=== PATIENT | male | born 1960 | race Caucasian/White ===

== ENCOUNTER 2016-06-10 14:47 | Emergency (ER) | payer MEDICAID, MEDICARE ==
[~2016-06-10] VITALS: Ht 180.3 cm; Wt 88.0 kg
[~2016-06-10 14:47] MED LIST: CIPR500T89 PO; GLIM2TAB PO; LORT1TAB PO
[2016-06-10 16:22] LABS: BASO # 0.1 K/mm3 (0.0-0.2); BASO % 0.8 % (0.0-1.0); EOS # 0.3 K/mm3 (0.0-0.50); EOS % 2.4 % (0.0-3.0); LARGE UNSTAINED CELL # 0.1 K/mm3 (0.0-0.4); LARGE UNSTAINED CELL % 1.2 % (0.0-4.0); LYMPH % 15.5 % (24.0-44.0); MEAN CORPUSCULAR HEMOGLOBIN 29.8 pg (27.0-33.0); MEAN CORPUSCULAR HGB CONC 34.9 g/dl (32.0-36.5); MEAN CORPUSCULAR VOLUME 85.5 fl (80.0-96.0); MONO # 0.6 K/mm3 (0.0-0.8); MONO % 5.1 % (0.0-5.0); NEUTROPHILS # 8.9 K/mm3 (1.8-7.7); PLATELET COUNT, AUTOMATED 223 k/mm3 (150-450); RED CELL DISTRIBUTION WIDTH 12.8 % (11.5-14.5); WHITE BLOOD COUNT 11.9 K/mm3 (4.0-10.0)
[2016-06-10 16:41] LABS: ANION GAP 8 MEQ/L (8-16); BLOOD UREA NITROGEN 12 MG/DL (7-18); CALCIUM LEVEL 8.7 MG/DL (8.5-10.1); CARBON DIOXIDE LEVEL 30 MEQ/L (21-32); CHLORIDE LEVEL 100 MEQ/L (98-107); CREATININE FOR GFR 0.98 MG/DL (0.70-1.30); GLOMERULAR FILTRATION RATE > 60.0 (>56); GLUCOSE, FASTING 219 MG/DL (70-105); POTASSIUM SERUM 3.8 MEQ/L (3.5-5.1); SODIUM LEVEL 138 MEQ/L (136-145)
[2016-06-10] MEDS ORDERED: amLODIPine 5 MG TAB PO ONE (16:45)
[2016-06-10] MEDS ORDERED: LOSARTAN 50 MG TAB PO ONE (16:45)
--- NOTE | 2016-06-10 16:53 | REP ---
CT HEAD WITHOUT CONTRAST: HISTORY: Hypertensive emergency. Areas of decreased attentuation are present in the periventricular white matter. This represents small vessel ischemic disease. There is no intraparenchymal hemorrhage, mass or midline shift. The ventricular system and cortical sulci are dilated consistent with mild volume loss. There is no extracerebral collection. The visualized sinuses are clear. IMPRESSION: 1. Small vessel ischemic disease. 2. Mild volume loss. Signed by Robby Santiago MD 06/10/2016 04:57 P
[2016-06-10] MEDS ORDERED: amLODIPine 10 MG TAB PO ONE (17:00)
--- NOTE | 2016-06-10 17:00 | REP ---
Chest x-ray: Two views: History: Chest pain. Comparison study: 04/02/2015. Findings: EKG monitoring electrodes overlie the chest. The lungs are symmetrically aerated and clear. Pleural angles are sharp. Heart size is normal. The aorta is slightly tortuous. Pulmonary vasculature is not increased. Impression: No active disease. Signed by Marcellus Braxton MD 06/10/2016 06:27 P
[2016-06-10] MEDS ORDERED: AMLO10TA PO (18:31)
[2016-06-10] MEDS ORDERED: LOSA100T36 PO (18:31)
[2016-06-10 18:45] VITALS: BP 163/85
[2016-06-10] MEDS ORDERED: hydrALAZINE INJ 20 MG/ML VIAL IV ONE (18:45)
[2016-06-10 21:04] VITALS: BP 159/88
--- NOTE | 2016-06-11 05:00 | ECGEPIP ---
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
== END 2016-06-10 21:06 | disposition home or self-care (01) ==
LOC: M ED 16:53
DX: I10 Essential (primary) hypertension (principal); E11.9 Type 2 diabetes mellitus without complications; J44.9 Chronic obstructive pulmonary disease, unspecified; F31.9 Bipolar disorder, unspecified; G47.30 Sleep apnea, unspecified; Z91.120 Patient's intentional underdosing of medication regimen due to financial hardship; F17.210 Nicotine dependence, cigarettes, uncomplicated; Z79.2 Long term (current) use of antibiotics; Z79.899 Other long term (current) drug therapy; Z86.14 Personal history of Methicillin resistant Staphylococcus aureus infection
CPT/HCPCS: 36415; 70450; 71020; 80048; 82550; 82553; 84443; 84484; 85025; 93005; 93041; 94760; 99285; G0463

== ENCOUNTER → 2016-07-01 | Outpatient (CLI) | payer MEDICARE ==
[~2016-07-01] MED LIST changes: +AMLO10TA PO; +ISOVUE-370 76% 100ML VIAL (Q9967) As Ordered ONE; +LOSA100T36 PO
--- NOTE | 2016-07-02 05:43 | REP ---
CT ANGIOGRAM ABDOMEN AND PELVIS: TECHNIQUE: Axial noncontrast images through the abdomen followed by contrast-enhanced images through the abdomen and pelvis using 100 mL Isovue 370 intravenous contrast material, with coronal and sagittal reformations. MIP reconstructions are also performed. The abdominal aorta demonstrates moderate atherosclerotic plaquing and mild diffuse narrowing. There is no aneurysm. There is mild narrowing at the origin of the mesenteric arteries. Focal narrowing is seen in the proximal right renal artery between 40-50%. Similar degree of narrowing of 40-50% is seen in the proximal left renal artery. 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 There is mild diffuse narrowing of the common iliac, external iliac and common femoral arteries. No adenopathy is seen in the abdomen or pelvis with normal size periaortic lymph nodes. There is no free air or free fluid. The liver, spleen, adrenals, pancreas and kidneys are otherwise unremarkable. Urinary bladder demonstrated small diverticula bilaterally at the base of the bladder. There is a small left inguinal hernia containing fat. Patient has had a prior cholecystectomy. There are degenerative changes of the spine. 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 Signed by Graham Dillard MD 07/02/2016 04:04 P
== END ==
LOC: M RAD 07:40
PROVIDERS: ATTEND Internal Medicine Cardiovascular Disease
DX: I70.1 Atherosclerosis of renal artery (principal); I10 Essential (primary) hypertension
CPT/HCPCS: 74174; Q9967

== ENCOUNTER 2016-09-25 07:36 | Emergency (ER) | payer MEDICARE ==
[~2016-09-25] VITALS: Ht 180.3 cm; Wt 93.0 kg
[~2016-09-25 07:36] MED LIST changes: +CIPR-249 PO; -CIPR500T89 PO; -ISOVUE-370 76% 100ML VIAL (Q9967) As Ordered ONE
[2016-09-25] MEDS ORDERED: METF500T13 PO (07:51)
[2016-09-25] MEDS ORDERED: ATEN25TA (07:51)
[2016-09-25] MEDS ORDERED: ROSU20TA (07:51)
[2016-09-25] MEDS ORDERED: ASPI81TA85 PO (07:51)
[2016-09-25 09:10] VITALS: BP 121/74
== END 2016-09-25 09:13 | disposition home or self-care (01) ==
LOC: M ED 07:36
DX: F25.9 Schizoaffective disorder, unspecified (principal); F41.9 Anxiety disorder, unspecified; E11.9 Type 2 diabetes mellitus without complications; I10 Essential (primary) hypertension; Z79.82 Long term (current) use of aspirin; Z79.899 Other long term (current) drug therapy

== ENCOUNTER 2017-06-05 04:55 | Emergency (ER) | payer MEDICARE ==
[2017-06-05] MEDS: ADACEL/BOOSTRIX VACCINE (DIPHTH/PERTUSS/ACELL/TETANUS)0.5ML SYR (90715) IM (07:10)
[2017-06-05] MEDS: NORCO, ANEXSIA 5/325MG TABLET (HYDROcodone/ACETAMINOPHEN) PO (07:11)
[2017-06-05] MEDS: amLODIPine 5 MG TAB PO (07:11)
[2017-06-05] MEDS: LOSARTAN 50 MG TAB PO (07:11)
[2017-06-05] MEDS: ATENOLOL 25 MG TAB PO (07:11)
== END 2017-06-05 07:20 | disposition home or self-care (01) ==
LOC: M ED 04:55
DX: S00.93XA Contusion of unspecified part of head, initial encounter (principal); S02.2XXA Fracture of nasal bones, initial encounter for closed fracture; S06.0X0A Concussion without loss of consciousness, initial encounter; W17.89XA Other fall from one level to another, initial encounter; Y92.018 Other place in single-family (private) house as the place of occurrence of the external cause; E11.9 Type 2 diabetes mellitus without complications; I10 Essential (primary) hypertension; F31.9 Bipolar disorder, unspecified; G47.33 Obstructive sleep apnea (adult) (pediatric); R21 Rash and other nonspecific skin eruption; F17.210 Nicotine dependence, cigarettes, uncomplicated; Z79.899 Other long term (current) drug therapy; Z79.84 Long term (current) use of oral hypoglycemic drugs; Z79.82 Long term (current) use of aspirin; Z82.49 Family history of ischemic heart disease and other diseases of the circulatory system
CPT/HCPCS: 90715

== ENCOUNTER 2017-06-08 09:32 | Emergency (ER) | payer MEDICARE | END 2017-06-08 10:19 | disposition home or self-care (01) | LOC: M ED 09:32 | DX: S43.402A Unspecified sprain of left shoulder joint, initial encounter (principal); W19.XXXA Unspecified fall, initial encounter; Y92.009 Unspecified place in unspecified non-institutional (private) residence as the place of occurrence of the external cause; F20.9 Schizophrenia, unspecified; Z82.49 Family history of ischemic heart disease and other diseases of the circulatory system; Z79.2 Long term (current) use of antibiotics; Z79.899 Other long term (current) drug therapy; Z79.84 Long term (current) use of oral hypoglycemic drugs | CPT/HCPCS: 73030 ==

== ENCOUNTER 2017-06-08 18:25 | Observation (INO) | payer MEDICARE ==
[2017-06-08 19:06] LABS: BASO # 0.1 10^3/uL (0.0-0.2); BASO % 0.5 % (0.0-1.0); EOS # 0.2 10^3/uL (0.0-0.50); EOS % 1.6 % (0.0-3.0); HEMATOCRIT 44.4 % (42.0-52.0); HEMOGLOBIN 15.4 g/dl (13.5-17.5); IMMATURE GRANULOCYTE % 0.5 % (0-3.0); LYMPH # 1.5 10^3/uL (1.5-4.5); LYMPH % 14.4 % (24.0-44.0); MEAN CORPUSCULAR HEMOGLOBIN 29.3 pg (27.0-33.0); MEAN CORPUSCULAR HGB CONC 34.7 g/dl (32.0-36.5); MEAN CORPUSCULAR VOLUME 84.6 fl (80.0-96.0); MONO # 0.8 10^3/uL (0.0-0.8); MONO % 7.1 % (0.0-5.0); NEUTROPHILS # 8.2 10^3/uL (1.8-7.7); NEUTROPHILS % 75.9 % (36.0-66.0); PLATELET COUNT, AUTOMATED 242 10^3/uL (150-450); RED BLOOD COUNT 5.25 10^6/uL (4.30-6.10); RED CELL DISTRIBUTION WIDTH 13.3 % (11.5-14.5); WHITE BLOOD COUNT 10.7 10^3/uL (4.0-10.0)
[2017-06-08 19:26] LABS: OSMOLALITY SERUM 290 MOSM/KG (275-295)
[2017-06-08 19:28] LABS: AMMONIA 28 uMOL/L (<32)
[2017-06-08 19:31] LABS: LACTIC ACID SEPSIS PROTOCOL 1.5 MMOL/L (0.4-2.0)
[2017-06-08 19:33] LABS: ALBUMIN 3.8 GM/DL (3.2-5.2); ALKALINE PHOSPHATASE 134 U/L (45-117); ALT/SGPT 89 U/L (12-78); ANION GAP 5 MEQ/L (8-16); AST/SGOT 106 U/L (7-37); BILIRUBIN,DIRECT 0.3 MG/DL (0.0-0.2); BILIRUBIN,TOTAL 1.3 MG/DL (0.2-1.0); BLOOD UREA NITROGEN 15 MG/DL (7-18); CALCIUM LEVEL 8.6 MG/DL (8.5-10.1); CARBON DIOXIDE LEVEL 28 MEQ/L (21-32); CHLORIDE LEVEL 105 MEQ/L (98-107); CK-MB VALUE MASS 2.6 NG/ML (<3.6); CPK CREATINE PHOSPHOKINASE 124 U/L (39-308); CREATININE FOR GFR 0.85 MG/DL (0.70-1.30); ETHYL ALCOHOL (ETHANOL) 0.005 % (0.000-0.010); GLOMERULAR FILTRATION RATE > 60.0 (>56); GLUCOSE, FASTING 154 MG/DL (70-100); MB/CK RELATIVE INDEX 2.09 (< OR =4); POTASSIUM SERUM 3.5 MEQ/L (3.5-5.1); SODIUM LEVEL 138 MEQ/L (136-145); TOTAL PROTEIN 7.6 GM/DL (6.4-8.2); TROPONIN I < 0.02 NG/ML (< 0.10)
[2017-06-08 19:55] LABS: INR 1.06; PROTHROMBIN TIME 13.9 SECONDS (12.4-14.5)
[2017-06-08 19:56] LABS: PARTIAL THROMBOPLASTIN TIME 27.5 SECONDS (26.8-37.9)
[2017-06-08 21:04] LABS: KETONE, URINE AUTO RFX NEGATIVE (NEGATIVE); LEUKOCYTE ESTERASE UR AUTO RFX NEGATIVE (NEGATIVE); MUCUS, URINE RFX SMALL (NEGATIVE); NITRITE, URINE AUTO RFX NEGATIVE (NEGATIVE); RBC, URINE AUTO RFX 1 /HPF (0-3); SPECIFIC GRAVITY UR AUTO RFX 1.021 (1.002-1.035); SQUAM EPITHELIAL CELL UR AURFX 0 /HPF (0-6); WBC, URINE AUTO RFX 2 /HPF (0-3)
[2017-06-08 21:19] LABS: AMPHETAMINES LEVEL URINE NEGATIVE (NEGATIVE); BARBITURATES URINE NEGATIVE (NEGATIVE); BENZODIAZEPINES URINE NEGATIVE (NEGATIVE); CANNABINOIDS URINE NEGATIVE (NEGATIVE); COCAINE METABOLITE URINE NEGATIVE (NEGATIVE); METHADONE URINE NEGATIVE (NEGATIVE); OPIATES URINE POSITIVE (NEGATIVE); PHENCYCLIDINE URINE NEGATIVE (NEGATIVE)
[2017-06-08 21:45] LABS: ABG BASE EXCESS 1.5 (-2.0-2.0); ABG HCO3 26.3 MEQ/L (22.0-26.0); ABG O2 SATURATION 95.8 % (95.0-99.0); ABG PARTIAL PRESSURE CO2 42.4 mmHg (35.0-45.0); ABG STANDARD HCO3 25.7 MEQ/L (22.0-26.0); ABG TOTAL CO2 27.6 MEQ/L (22.0-29.0); ABG pH (ARTERIAL) 7.411 UNITS (7.350-7.450)
[2017-06-08 22:28] LABS: OSMOLALITY SERUM 290 MOSM/KG (275-295)
[2017-06-08 22:49] LABS: ACETAMINOPHEN LEVEL < 2.0 UG/ML (10.0-30.0)
[2017-06-08 23:59] LABS: ALBUMIN 3.6 GM/DL (3.2-5.2); ALBUMIN/GLOBULIN RATIO 1.03 (1.00-1.93); ALKALINE PHOSPHATASE 121 U/L (45-117); ALT/SGPT 80 U/L (12-78); AST/SGOT 71 U/L (7-37); BILIRUBIN,DIRECT 0.2 MG/DL (0.0-0.2); BILIRUBIN,TOTAL 1.6 MG/DL (0.2-1.0); TOTAL PROTEIN 7.1 GM/DL (6.4-8.2)
[2017-06-09] MEDS ORDERED: NALOXONE INJ 0.4 MG/1 ML VIAL (J2310) As Ordered (00:03)
[2017-06-09] MEDS: NALOXONE INJ 0.4 MG/1 ML VIAL (J2310) IV (00:09)
[2017-06-09] MEDS: NALOXONE INJ 2 MG/2 ML SYRINGE (J2310) IV (00:36)
[2017-06-09] MEDS ORDERED: ONDANSETRON 4MG/2ML VIAL (J2405) IV (01:45)
[2017-06-09] MEDS ORDERED: GLUCOSE 4 GM CHEW TABLET PO (02:15)
[2017-06-09] MEDS ORDERED: DEXTROSE 50% 50 ML SYRINGE IV (02:15)
[2017-06-09] MEDS ORDERED: GLUCAGON FOR INJ 1 MG VIAL (J1610) SC (02:15)
[2017-06-09 05:17] LABS: HEMATOCRIT 45.1 % (42.0-52.0); HEMOGLOBIN 15.5 g/dl (13.5-17.5); MEAN CORPUSCULAR HEMOGLOBIN 29.3 pg (27.0-33.0); MEAN CORPUSCULAR HGB CONC 34.4 g/dl (32.0-36.5); MEAN CORPUSCULAR VOLUME 85.3 fl (80.0-96.0); PLATELET COUNT, AUTOMATED 222 10^3/uL (150-450); RED BLOOD COUNT 5.29 10^6/uL (4.30-6.10); RED CELL DISTRIBUTION WIDTH 13.4 % (11.5-14.5); WHITE BLOOD COUNT 9.6 10^3/uL (4.0-10.0)
[2017-06-09 05:37] LABS: ALBUMIN 3.5 GM/DL (3.2-5.2); ALBUMIN/GLOBULIN RATIO 0.92 (1.00-1.93); ALKALINE PHOSPHATASE 116 U/L (45-117); ALT/SGPT 74 U/L (12-78); ANION GAP 7 MEQ/L (8-16); AST/SGOT 44 U/L (7-37); BILIRUBIN,TOTAL 1.6 MG/DL (0.2-1.0); BLOOD UREA NITROGEN 14 MG/DL (7-18); CALCIUM LEVEL 8.7 MG/DL (8.5-10.1); CARBON DIOXIDE LEVEL 27 MEQ/L (21-32); CHLORIDE LEVEL 106 MEQ/L (98-107); CREATININE FOR GFR 0.72 MG/DL (0.70-1.30); GLOMERULAR FILTRATION RATE > 60.0 (>56); GLUCOSE, FASTING 139 MG/DL (70-100); POTASSIUM SERUM 3.5 MEQ/L (3.5-5.1); SODIUM LEVEL 140 MEQ/L (136-145); TOTAL PROTEIN 7.3 GM/DL (6.4-8.2)
[2017-06-09] MEDS: AUGMENTIN 875 MG TAB PO ×2 (06:01→17:18)
[2017-06-09] MEDS: HEPARIN SOD (PORCINE) 5000 UNITS/ML VIAL SC ×3 (06:01→21:32)
[2017-06-09] MEDS: ASPIRIN 81 MG ENTERIC TAB PO (08:26)
[2017-06-09] MEDS: HumaLOG INSULIN (NovoLOG) PER UNIT SC ×4 (08:26→21:00)
[2017-06-09] MEDS: DOCUSATE SODIUM 100 MG CAP PO ×2 (08:26→21:32)
[2017-06-09] MEDS: IBUPROFEN 400 MG TAB PO (08:53)
[2017-06-09 12:23] LABS: BEDSIDE GLUCOSE 107 MG/DL (70-105)
[2017-06-09 17:21] LABS: BEDSIDE GLUCOSE 133 MG/DL (70-105)
[2017-06-09] MEDS: amLODIPine 10 MG TAB PO (18:22)
[2017-06-09] MEDS: ATENOLOL 25 MG TAB PO (18:22)
[2017-06-09 21:15] LABS: BEDSIDE GLUCOSE 189 MG/DL (70-105)
[2017-06-09] MEDS: LOSARTAN 50 MG TAB PO (21:31)
[2017-06-10 05:48] LABS: HEMATOCRIT 43.7 % (42.0-52.0); MEAN CORPUSCULAR HEMOGLOBIN 29.4 pg (27.0-33.0); MEAN CORPUSCULAR HGB CONC 34.3 g/dl (32.0-36.5); MEAN CORPUSCULAR VOLUME 85.7 fl (80.0-96.0); PLATELET COUNT, AUTOMATED 269 10^3/uL (150-450); RED CELL DISTRIBUTION WIDTH 13.3 % (11.5-14.5); WHITE BLOOD COUNT 11.3 10^3/uL (4.0-10.0)
[2017-06-10] MEDS: AUGMENTIN 875 MG TAB PO ×2 (05:55→17:23)
[2017-06-10] MEDS: HEPARIN SOD (PORCINE) 5000 UNITS/ML VIAL SC ×3 (05:56→22:02)
[2017-06-10 06:18] LABS: ALT/SGPT 49 U/L (12-78); ANION GAP 3 MEQ/L (8-16); AST/SGOT 18 U/L (7-37); BLOOD UREA NITROGEN 19 MG/DL (7-18); CALCIUM LEVEL 8.9 MG/DL (8.5-10.1); CARBON DIOXIDE LEVEL 31 MEQ/L (21-32); CHLORIDE LEVEL 105 MEQ/L (98-107); CREATININE FOR GFR 0.94 MG/DL (0.70-1.30); GLOMERULAR FILTRATION RATE > 60.0 (>56); GLUCOSE, FASTING 126 MG/DL (70-100); POTASSIUM SERUM 3.9 MEQ/L (3.5-5.1); SODIUM LEVEL 139 MEQ/L (136-145)
[2017-06-10 06:19] LABS: ALBUMIN 3.2 GM/DL (3.2-5.2); ALBUMIN/GLOBULIN RATIO 0.82 (1.00-1.93); ALKALINE PHOSPHATASE 91 U/L (45-117); BILIRUBIN,TOTAL 1.2 MG/DL (0.2-1.0); TOTAL PROTEIN 7.1 GM/DL (6.4-8.2)
[2017-06-10] MEDS: HumaLOG INSULIN (NovoLOG) PER UNIT SC ×4 (07:55→21:00)
[2017-06-10] MEDS: ATENOLOL 25 MG TAB PO (09:18)
[2017-06-10] MEDS: ASPIRIN 81 MG ENTERIC TAB PO (09:18)
[2017-06-10] MEDS: DOCUSATE SODIUM 100 MG CAP PO ×2 (09:18→22:02)
[2017-06-10] MEDS: amLODIPine 10 MG TAB PO (09:19)
[2017-06-10] MEDS: LOSARTAN 50 MG TAB PO ×2 (09:19→22:02)
[2017-06-10] MEDS ORDERED: SLF 3 ML SYR IV (11:30)
[2017-06-10 11:57] LABS: BEDSIDE GLUCOSE 117 MG/DL (70-105)
[2017-06-10] MEDS: INFLUENZA QUADRIVALENT PF VACCINE 0.5ML SYRINGE (90686) IM (12:33)
[2017-06-10] MEDS: SLF 3 ML SYR IV ×2 (14:20→22:03)
[2017-06-10 17:25] LABS: BEDSIDE GLUCOSE 127 MG/DL (70-105)
[2017-06-10] MEDS: IBUPROFEN 400 MG TAB PO (17:36)
[2017-06-10 21:13] LABS: BEDSIDE GLUCOSE 152 MG/DL (70-105)
[2017-06-11] MEDS: AUGMENTIN 875 MG TAB PO (05:22)
[2017-06-11] MEDS: SLF 3 ML SYR IV (05:23)
[2017-06-11] MEDS: HEPARIN SOD (PORCINE) 5000 UNITS/ML VIAL SC (05:23)
[2017-06-11 06:11] LABS: HEMATOCRIT 42.4 % (42.0-52.0); HEMOGLOBIN 14.5 g/dl (13.5-17.5); MEAN CORPUSCULAR HEMOGLOBIN 29.1 pg (27.0-33.0); MEAN CORPUSCULAR HGB CONC 34.2 g/dl (32.0-36.5); PLATELET COUNT, AUTOMATED 269 10^3/uL (150-450); RED BLOOD COUNT 4.99 10^6/uL (4.30-6.10); RED CELL DISTRIBUTION WIDTH 13.2 % (11.5-14.5); WHITE BLOOD COUNT 10.7 10^3/uL (4.0-10.0)
[2017-06-11 06:23] LABS: ALBUMIN 3.1 GM/DL (3.2-5.2); ALBUMIN/GLOBULIN RATIO 0.79 (1.00-1.93); ALKALINE PHOSPHATASE 82 U/L (45-117); ALT/SGPT 38 U/L (12-78); ANION GAP 5 MEQ/L (8-16); AST/SGOT 16 U/L (7-37); BILIRUBIN,TOTAL 0.9 MG/DL (0.2-1.0); BLOOD UREA NITROGEN 19 MG/DL (7-18); CALCIUM LEVEL 8.7 MG/DL (8.5-10.1); CARBON DIOXIDE LEVEL 28 MEQ/L (21-32); CHLORIDE LEVEL 106 MEQ/L (98-107); CREATININE FOR GFR 0.91 MG/DL (0.70-1.30); GLOMERULAR FILTRATION RATE > 60.0 (>56); GLUCOSE, FASTING 126 MG/DL (70-100); POTASSIUM SERUM 3.9 MEQ/L (3.5-5.1); SODIUM LEVEL 139 MEQ/L (136-145)
[2017-06-11] MEDS: HumaLOG INSULIN (NovoLOG) PER UNIT SC ×2 (08:19→11:49)
[2017-06-11] MEDS: IBUPROFEN 400 MG TAB PO (08:20)
[2017-06-11] MEDS: DOCUSATE SODIUM 100 MG CAP PO (08:20)
[2017-06-11] MEDS: ASPIRIN 81 MG ENTERIC TAB PO (08:21)
[2017-06-11] MEDS: ATENOLOL 25 MG TAB PO (08:21)
[2017-06-11] MEDS: amLODIPine 10 MG TAB PO (08:21)
[2017-06-11] MEDS: LOSARTAN 50 MG TAB PO (08:22)
[2017-06-11 09:46] LABS: BEDSIDE GLUCOSE 156 MG/DL (70-105)
[2017-06-11 11:55] LABS: BEDSIDE GLUCOSE 94 MG/DL (70-105)
== END 2017-06-11 12:45 | disposition home or self-care (01) ==
LOC: M ED INP 06-09 01:45 → M PCU 06-09 02:34 → M ED 18:25
DX: R41.82 Altered mental status, unspecified (principal); Z79.891 Long term (current) use of opiate analgesic; I10 Essential (primary) hypertension; M48.02 Spinal stenosis, cervical region; M50.30 Other cervical disc degeneration, unspecified cervical region; E11.40 Type 2 diabetes mellitus with diabetic neuropathy, unspecified; F31.9 Bipolar disorder, unspecified; R93.0 Abnormal findings on diagnostic imaging of skull and head, not elsewhere classified; R74.0 Nonspecific elevation of levels of transaminase and lactic acid dehydrogenase [LDH]; J32.9 Chronic sinusitis, unspecified; R26.89 Other abnormalities of gait and mobility; F17.200 Nicotine dependence, unspecified, uncomplicated; Z79.82 Long term (current) use of aspirin; Z23 Encounter for immunization; S43.402A Unspecified sprain of left shoulder joint, initial encounter; W19.XXXA Unspecified fall, initial encounter; Y92.009 Unspecified place in unspecified non-institutional (private) residence as the place of occurrence of the external cause; F20.9 Schizophrenia, unspecified; Z82.49 Family history of ischemic heart disease and other diseases of the circulatory system; Z79.2 Long term (current) use of antibiotics; Z79.899 Other long term (current) drug therapy; Z79.84 Long term (current) use of oral hypoglycemic drugs
CPT/HCPCS: 90686

== ENCOUNTER → 2017-06-16 | Outpatient (REF) | payer MEDICARE ==
[2017-06-16 12:23] LABS: ANION GAP 6 MEQ/L (8-16); BLOOD UREA NITROGEN 13 MG/DL (7-18); CALCIUM LEVEL 8.8 MG/DL (8.5-10.1); CARBON DIOXIDE LEVEL 28 MEQ/L (21-32); CHLORIDE LEVEL 108 MEQ/L (98-107); CREATININE FOR GFR 0.94 MG/DL (0.70-1.30); GLOMERULAR FILTRATION RATE > 60.0 (>56); GLUCOSE, FASTING 135 MG/DL (70-100); POTASSIUM SERUM 4.6 MEQ/L (3.5-5.1); SODIUM LEVEL 142 MEQ/L (136-145)
[2017-06-16 15:25] LABS: ESTIMATED AVERAGE GLUCOSE 143 MG/DL (60-110); HEMOGLOBIN A1c 6.6 %
== END ==
LOC: M SFHCPLAZ 08:56
DX: E11.9 Type 2 diabetes mellitus without complications (principal)
CPT/HCPCS: 83036

== ENCOUNTER → 2017-07-16 | Outpatient (REF) | payer MEDICARE ==
[2017-07-16 16:17] LABS: PSA SCREENING 0.31 NG/ML (< 4.0)
== END ==
LOC: M SFHCPLAZ 11:42
DX: R63.4 Abnormal weight loss (principal); Z12.5 Encounter for screening for malignant neoplasm of prostate; Z23 Encounter for immunization
CPT/HCPCS: G0103

== ENCOUNTER → 2017-08-22 | Outpatient (CLI) | payer MEDICARE | LOC: M RAD 08:43 | DX: Z12.2 Encounter for screening for malignant neoplasm of respiratory organs (principal); Z87.891 Personal history of nicotine dependence | CPT/HCPCS: G0297 ==

== ENCOUNTER → 2018-01-13 | Outpatient (REF) | payer MEDICARE ==
[2018-01-13 16:02] LABS: ESTIMATED AVERAGE GLUCOSE 120 MG/DL (60-110); HEMOGLOBIN A1c 5.8 %
== END ==
LOC: M SFHCPLAZ 14:14
DX: E11.9 Type 2 diabetes mellitus without complications (principal)
CPT/HCPCS: 83036

== ENCOUNTER 2018-04-04 07:31 | Inpatient (IN) | payer MEDICARE ==
[~2018-04-04] VITALS: Ht 180.3 cm; Wt 78.2 kg
[~2018-04-04 07:31] MED LIST changes: +AMLO10TA5 PO; +ASPI81TA85 PO; +ATEN25TA; +ATEN25TA PO; +AUGM875T28 PO; +IBUP-1022 PO; -LOSA100T36 PO; +LOSA100T50 PO; +METF500T13 PO; +NORC1TAB4 PO; +NORCOTAB PO; +ROSU20TA4; +VIST25CA PO
[2018-04-04 08:31] LABS: HEMATOCRIT 47.6 % (42.0-52.0); HEMOGLOBIN 16.2 g/dl (13.5-17.5); MEAN CORPUSCULAR HEMOGLOBIN 29.2 pg (27.0-33.0); MEAN CORPUSCULAR VOLUME 85.8 fl (80.0-96.0); PLATELET COUNT, AUTOMATED 233 10^3/uL (150-450); RED BLOOD COUNT 5.55 10^6/uL (4.30-6.10); WHITE BLOOD COUNT 13.3 10^3/uL (4.0-10.0)
[2018-04-04 08:50] LABS: AMPHETAMINES LEVEL URINE NEGATIVE (NEGATIVE); BARBITURATES URINE NEGATIVE (NEGATIVE); BENZODIAZEPINES URINE NEGATIVE (NEGATIVE); CANNABINOIDS URINE NEGATIVE (NEGATIVE); COCAINE METABOLITE URINE NEGATIVE (NEGATIVE); METHADONE URINE NEGATIVE (NEGATIVE); OPIATES URINE NEGATIVE (NEGATIVE); PHENCYCLIDINE URINE NEGATIVE (NEGATIVE)
[2018-04-04 09:18] LABS: ACETAMINOPHEN LEVEL < 2.0 UG/ML (10.0-30.0); ALBUMIN 3.9 GM/DL (3.2-5.2); ALT/SGPT 22 U/L (12-78); BILIRUBIN,DIRECT 0.3 MG/DL (0.0-0.2); BILIRUBIN,TOTAL 1.4 MG/DL (0.2-1.0); BLOOD UREA NITROGEN 17 MG/DL (7-18); CALCIUM LEVEL 8.8 MG/DL (8.5-10.1); CARBON DIOXIDE LEVEL 26 MEQ/L (21-32); CHLORIDE LEVEL 109 MEQ/L (98-107); CREATININE FOR GFR 0.99 MG/DL (0.70-1.30); ETHYL ALCOHOL (ETHANOL) < 0.003 % (0.000-0.010); GLOMERULAR FILTRATION RATE > 60.0 (>56); GLUCOSE, FASTING 108 MG/DL (70-100); POTASSIUM SERUM 4.5 MEQ/L (3.5-5.1); SALICYLATE LEVEL < 1.7 MG/DL (5.0-30.0); SODIUM LEVEL 142 MEQ/L (136-145); THYROID STIMULATING HORMONE 0.467 uIU/ML (0.358-3.740); TOTAL PROTEIN 7.1 GM/DL (6.4-8.2)
[2018-04-04] MEDS ORDERED: MOM 30ML SUSPENSION UDC PO PRN (11:45)
[2018-04-04] MEDS ORDERED: ACETAMINOPHEN TAB 650MG DOSE (2X325MG) PO PRN (11:45)
[2018-04-04] MEDS ORDERED: MAALOX 30 ML SUSP *UDC PO PRN (11:45)
[2018-04-04] MEDS ORDERED: OLANZapine ORAL DISINTEGRATING TAB 5MG PO PRN (11:45)
[2018-04-04] MEDS ORDERED: METF500T13 PO (12:37)
[2018-04-04] MEDS ORDERED: ASPI1TAB PO (12:37)
[2018-04-04] MEDS ORDERED: LOSA100T50 PO (12:37)
[2018-04-04] MEDS ORDERED: NITR0.4S14 SL (12:37)
[2018-04-04] MEDS ORDERED: ATEN50TA2 PO (12:37)
[2018-04-04] MEDS ORDERED: GLIM2TAB PO (12:37)
[2018-04-04 14:03] VITALS: BP 140/78
[2018-04-04 18:00] VITALS: BP 150/80
[2018-04-05 06:00] VITALS: BP 114/69
[2018-04-05] MEDS: PARoxetine 10MG TABLET PO SCH (08:00)
[2018-04-05] MEDS: NICOTINE 21MG/24HR 1 EA TRANSDERMAL TD SCH (08:00)
[2018-04-05 18:00] VITALS: BP 140/75
[2018-04-05] MEDS ORDERED: IBUPROFEN 400 MG TAB PO PRN (18:00)
[2018-04-05] MEDS: traZODone 50 MG TAB PO PRN (20:57)
[2018-04-05] MEDS ORDERED: diphenhydrAMINE 50 MG CAP PO PRN (21:15)
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
[2018-04-06 06:52] VITALS: BP 153/77
[2018-04-06] MEDS: metFORMIN (GLUCOPHAGE) 500 MG TAB PO SCH ×2 (07:34→17:08)
[2018-04-06] MEDS: GLIMEPIRIDE 2 MG TAB PO SCH (07:34)
[2018-04-06] MEDS: PARoxetine 10MG TABLET PO SCH (08:33)
[2018-04-06] MEDS: LOSARTAN 50 MG TAB PO SCH (08:33)
[2018-04-06] MEDS: ATENOLOL 50 MG TAB PO SCH ×2 (08:34→21:51)
[2018-04-06] MEDS: NICOTINE 21MG/24HR 1 EA TRANSDERMAL TD SCH (08:34)
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
--- NOTE | 2018-04-06 17:46 | MHIPN ---
DATE: 04/05/2018 CHIEF COMPLAINT: Feels depressed. SUBJECTIVE: Seen for followup in the presence of staff. Says feels depressed and did not sleep well, says not aware that had trazodone available. Says appetite has been fair. MENTAL STATUS EXAMINATION: He is neater than yesterday, he is cooperative, more interactive, he is coherent. Affect is broader. Denies any thoughts of harming anyone else at present, vague suicidal thoughts, currently no evidence of psychosis. Cognition grossly intact. Judgment and insight remain questionable. ASSESSMENT: Major depressive disorder recurrent. PLAN: He has been started on Paxil, will continue with it at 10 mg daily and titrate it upwards. He has tolerated it well. He has one dose. We will continue collateral information. He will be encouraged to participate in activities on the unit, and he will be seeing the treatment team, as well as the assigned psychiatrist tomorrow. VITAL SIGNS: Blood pressure (BP) 104/69, pulse 63 and temperature 97.4.
[2018-04-06 18:00] VITALS: BP 97/54
[2018-04-06] MEDS: traZODone 50 MG TAB PO PRN (22:02)
[2018-04-07 06:41] VITALS: BP 125/66
[2018-04-07] MEDS: PARoxetine 10MG TABLET PO SCH (08:35)
[2018-04-07] MEDS: LOSARTAN 50 MG TAB PO SCH (08:36)
[2018-04-07] MEDS: GLIMEPIRIDE 2 MG TAB PO SCH (08:36)
[2018-04-07] MEDS: metFORMIN (GLUCOPHAGE) 500 MG TAB PO SCH ×2 (08:36→17:44)
[2018-04-07] MEDS: ATENOLOL 50 MG TAB PO SCH ×2 (08:36→22:06)
[2018-04-07] MEDS: NICOTINE 21MG/24HR 1 EA TRANSDERMAL TD SCH (08:37)
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
--- NOTE | 2018-04-07 11:34 | HPE ---
DATE OF ADMISSION: 04/04/2018 HISTORY OF PRESENT ILLNESS (HPI): Please refer to the psychiatric history and evaluation for further details on this admission. This examination and history is intended for medical issues, which may need treatment, followup or consultation on this 57-year-old male. ALLERGIES: CODEINE. PRIMARY CARE PROVIDER: Dr. Awilda Florian SOCIAL HISTORY: He is . Ethyl alcohol (EtOH) once a month if that. Smokes one pack of cigarettes per day. Recreational drug use none. PAST MEDICAL HISTORY: 1. Bipolar disorder. 2. Diabetes, type 2. 3. History of renal stones. PAST SURGICAL HISTORY: 1. Cholecystectomy. 2. [place] teeth extraction. FAMILY HISTORY: Noncontributory. LABORATORY STUDIES: WBC 13.3. Hemoglobin 16.2. Hematocrit 47.6. Platelets 233. Sodium 142. Potassium 4.5. Chloride 109. CO2 26. BUN 17. Creatinine 0.99. Total bilirubin 1.5, direct bilirubin 0.3. Toxicology negative. MEDICATIONS: - aspirin 81 mg by mouth daily - nitroglycerin 0.4 sublingual every 5 minutes times three as needed for chest pain - 50 mg by mouth twice a day - glimepiride 2 mg by mouth daily - (dictation inaudible) - losartan 100 mg by mouth daily - metformin 500 mg by mouth twice a day REVIEW OF SYSTEMS: 10 systems review was negative other than he has itching from numerous bites from bedbugs. PHYSICAL EXAMINATION: 57-year-old male, who looks much older than his stated years, in no acute distress. Height 71 inches. Weight 77.5 kg. Body mass index (BMI) 23.8. Blood pressure 138/65. Pulse 65. Respirations 17. Temperature 98.6. Oxygen saturation 93% on room air. Patient is alert and oriented times three. Pupils equal and reactive to light. Extraocular movements (EOMS) intact. Cornea and sclerae clear. Conjunctiva is normal. No facial asymmetry. Pharynx, tongue and gums pink and moist. Tongue is midline. Neck is supple, without lymphadenopathy. No thyromegaly. No goiter. Carotids 2+ without bruits. Chest: Clear to auscultation. Without wheeze or retraction. Heart is regular. Abdomen: Benign. Bowel sounds positive. Genitourinary ()/rectal not done. Extremities: Show equal strength, full range of motion. No cyanosis, clubbing or edema. Peripheral pulse equal and palpable bilaterally. Skin is warm and dry, and has numerous reddened bites on his arms, legs. No open areas or sores. IMPRESSION/PLAN: 1. Psychiatric. Plan per psychiatry. 2. History of diabetes, type 2. Continue glimepiride and metformin. Consistent carbohydrate diet. 3. Hypertension. Continue atenolol. 4. Bedbug bites. Benadryl for itching (dictation inaudible) every 8 hours as needed. 5. No other acute medical issues.
[2018-04-07 18:00] VITALS: BP 111/67
[2018-04-07] MEDS: traZODone 100 MG TAB PO PRN (22:07)
[2018-04-08 06:42] VITALS: BP 122/59
[2018-04-08] MEDS: GLIMEPIRIDE 2 MG TAB PO SCH (08:23)
[2018-04-08] MEDS: PARoxetine 10MG TABLET PO SCH (08:23)
[2018-04-08] MEDS: LOSARTAN 50 MG TAB PO SCH (08:24)
[2018-04-08] MEDS: ATENOLOL 50 MG TAB PO SCH ×2 (08:24→21:02)
[2018-04-08] MEDS: metFORMIN (GLUCOPHAGE) 500 MG TAB PO SCH ×2 (08:24→17:06)
[2018-04-08] MEDS: NICOTINE 21MG/24HR 1 EA TRANSDERMAL TD SCH (08:25)
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
[2018-04-08 18:00] VITALS: BP 135/65
[2018-04-08] MEDS: traZODone 100 MG TAB PO PRN (22:20)
[2018-04-09 06:44] VITALS: BP 128/70
[2018-04-09] MEDS: PARoxetine 10MG TABLET PO SCH (08:25)
[2018-04-09] MEDS: GLIMEPIRIDE 2 MG TAB PO SCH (08:25)
[2018-04-09] MEDS: ATENOLOL 50 MG TAB PO SCH ×2 (08:25→20:11)
[2018-04-09] MEDS: metFORMIN (GLUCOPHAGE) 500 MG TAB PO SCH ×2 (08:25→17:03)
[2018-04-09] MEDS: NICOTINE 21MG/24HR 1 EA TRANSDERMAL TD SCH (08:26)
[2018-04-09] MEDS: LOSARTAN 50 MG TAB PO SCH (08:26)
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
[2018-04-09 18:00] VITALS: BP 125/67
[2018-04-09] MEDS: traZODone 100 MG TAB PO PRN (21:52)
[2018-04-10 06:17] VITALS: BP 120/71
[2018-04-10 08:24] VITALS: BP 120/71
[2018-04-10] MEDS: LOSARTAN 50 MG TAB PO SCH (08:24)
[2018-04-10] MEDS: metFORMIN (GLUCOPHAGE) 500 MG TAB PO SCH (08:24)
[2018-04-10] MEDS: GLIMEPIRIDE 2 MG TAB PO SCH (08:24)
[2018-04-10] MEDS: PARoxetine 10MG TABLET PO SCH (08:24)
[2018-04-10] MEDS: ATENOLOL 50 MG TAB PO SCH (08:24)
[2018-04-10] MEDS: NICOTINE 21MG/24HR 1 EA TRANSDERMAL TD SCH (09:00)
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
[2018-04-10] MEDS ORDERED: TRAZ10TA PO (09:29)
[2018-04-10] MEDS ORDERED: PARO5TAB PO (09:29)
== END 2018-04-10 12:40 | disposition home or self-care (01) | DRG 885 ==
LOC: M ED 07:31 → M ED INP 11:34 → M PSY 13:50
PROVIDERS: ADMIT Psychiatry & Neurology Psychiatry; ATTEND Psychiatry & Neurology Psychiatry
DX: F33.2 Major depressive disorder, recurrent severe without psychotic features (principal); F17.210 Nicotine dependence, cigarettes, uncomplicated; E11.9 Type 2 diabetes mellitus without complications; Z87.442 Personal history of urinary calculi; Z59.2 Discord with neighbors, lodgers and landlord; Z88.5 Allergy status to narcotic agent; Z79.82 Long term (current) use of aspirin; Z79.84 Long term (current) use of oral hypoglycemic drugs; Z79.899 Other long term (current) drug therapy

== ENCOUNTER 2019-04-16 16:38 | Emergency (ER) | payer MEDICARE ==
[~2019-04-16] VITALS: Ht 175.3 cm; Wt 79.5 kg
[~2019-04-16 16:38] MED LIST changes: +ASPI81TA26 PO; +ATEN50TA2 PO; -GLIM2TAB PO; +GLIM2TAB4 PO; +HYDR-3715 PO; +NITR0.4S14 SL; -NORC1TAB4 PO; +NORC1TAB7 PO; -NORCOTAB PO; +PARO5TAB PO; -ROSU20TA4; +ROSU20TA5; +TRAZ1TAB12 PO
[2019-04-16] MEDS ORDERED: QUET1TAB7 PO (17:36)
[2019-04-16 17:45] VITALS: BP 152/79
== END 2019-04-16 18:35 | disposition home or self-care (01) ==
LOC: M ED 16:38
DX: F41.9 Anxiety disorder, unspecified (principal); E11.9 Type 2 diabetes mellitus without complications; I10 Essential (primary) hypertension; F32.9 Major depressive disorder, single episode, unspecified; F17.200 Nicotine dependence, unspecified, uncomplicated; Z88.5 Allergy status to narcotic agent; Z79.899 Other long term (current) drug therapy; Z79.82 Long term (current) use of aspirin

== ENCOUNTER → 2019-07-06 | Outpatient (REF) | payer MEDICARE ==
[~2019-07-06] MED LIST changes: +QUET1TAB7 PO
[2019-07-06 13:02] LABS: ALBUMIN 4.1 GM/DL (3.2-5.2); ALT/SGPT 30 U/L (12-78); BLOOD UREA NITROGEN 21 MG/DL (7-18); CALCIUM LEVEL 9.9 MG/DL (8.5-10.1); CARBON DIOXIDE LEVEL 29 MEQ/L (21-32); CHLORIDE LEVEL 103 MEQ/L (98-107); CHOLESTEROL LEVEL 205 MG/DL (<200); CHOLESTEROL RISK RATIO 5.125 (<5); CREATININE FOR GFR 1.17 MG/DL (0.70-1.30); GLOMERULAR FILTRATION RATE > 60.0 (>56); GLUCOSE, FASTING 128 MG/DL (70-100); HDL CHOLESTEROL 40 MG/DL (>40); LDL CHOLESTEROL 134 MG/DL (<100); NON-HDL-C 165 MG/DL; SODIUM LEVEL 138 MEQ/L (136-145); TOTAL PROTEIN 7.8 GM/DL (6.4-8.2); TRIGLYCERIDES LEVEL 153 MG/DL (<150)
[2019-07-06 13:24] LABS: MALB URINE SIEMENS 78.1 MG/L; MAU/CREAT RATIO 51.3 MCG/MG (0.0-30.0)
[2019-07-06 15:11] LABS: HEMOGLOBIN A1c 6.1 %
== END ==
LOC: M SFHCPLAZ 10:59
PROVIDERS: ATTEND Family Medicine
DX: E11.9 Type 2 diabetes mellitus without complications (principal); E78.5 Hyperlipidemia, unspecified; I15.0 Renovascular hypertension

== ENCOUNTER → 2020-02-15 | Outpatient (REF) | payer MEDICARE ==
[~2020-02-15] MED LIST changes: -AMLO10TA5 PO; +AMLO1TAB25 PO; -ASPI81TA85 PO; +ASPI81TA86 PO
[2020-02-15 15:50] LABS: HEMATOCRIT 47.3 % (42.0-52.0); HEMOGLOBIN 15.5 g/dl (13.5-17.5); MEAN CORPUSCULAR HEMOGLOBIN 28.7 pg (27.0-33.0); MEAN CORPUSCULAR HGB CONC 32.8 g/dl (32.0-36.5); MEAN CORPUSCULAR VOLUME 87.6 fl (80.0-96.0); PLATELET COUNT, AUTOMATED 313 10^3/uL (150-450); WHITE BLOOD COUNT 12.3 10^3/uL (4.0-10.0)
[2020-02-15 16:17] LABS: BLOOD UREA NITROGEN 16 MG/DL (7-18); CALCIUM LEVEL 9.4 MG/DL (8.5-10.1); CARBON DIOXIDE LEVEL 28 MEQ/L (21-32); CHLORIDE LEVEL 102 MEQ/L (98-107); CREATININE FOR GFR 1.11 MG/DL (0.70-1.30); GLOMERULAR FILTRATION RATE > 60.0 (>56); GLUCOSE, FASTING 64 MG/DL (70-100); SODIUM LEVEL 137 MEQ/L (136-145)
[2020-02-15 16:28] LABS: CREATININE, URINE 61.2 MG/DL; MAU/CREAT RATIO 200.9 MCG/MG (0.0-30.0)
== END ==
LOC: M SFHCPLAZ 13:35
PROVIDERS: ATTEND Family Medicine
DX: I15.0 Renovascular hypertension (principal); E11.9 Type 2 diabetes mellitus without complications

== ENCOUNTER → 2020-07-10 | Outpatient (REF) | payer MEDICARE ==
[~2020-07-10] MED LIST changes: -QUET1TAB7 PO; +QUET25TA3 PO
[2020-07-10 14:16] LABS: ALBUMIN 3.7 GM/DL (3.2-5.2); ALT/SGPT 25 U/L (12-78); BILIRUBIN,TOTAL 0.6 MG/DL (0.2-1.0); BLOOD UREA NITROGEN 16 MG/DL (7-18); CALCIUM LEVEL 9.2 MG/DL (8.5-10.1); CARBON DIOXIDE LEVEL 29 MEQ/L (21-32); CHLORIDE LEVEL 105 MEQ/L (98-107); CHOLESTEROL LEVEL 102 MG/DL (<200); CHOLESTEROL RISK RATIO 3.187 (<5); CREATININE FOR GFR 1.22 MG/DL (0.70-1.30); GLOMERULAR FILTRATION RATE > 60.0 (>56); GLUCOSE, FASTING 117 MG/DL (70-100); HDL CHOLESTEROL 32 MG/DL (>40); LDL CHOLESTEROL 9 MG/DL (<100); NON-HDL-C 70 MG/DL; POTASSIUM SERUM 4.1 MEQ/L (3.5-5.1); SODIUM LEVEL 140 MEQ/L (136-145); TOTAL PROTEIN 6.8 GM/DL (6.4-8.2); TRIGLYCERIDES LEVEL 305 MG/DL (<150)
[2020-07-10 15:42] LABS: HEMOGLOBIN A1c 6.6 %
== END ==
LOC: M SFHCPLAZ 10:37
PROVIDERS: ATTEND Family Medicine
DX: E11.9 Type 2 diabetes mellitus without complications (principal); Z12.5 Encounter for screening for malignant neoplasm of prostate
CPT/HCPCS: 36415; 80053; 80061; 83036; G0103

== ENCOUNTER → 2021-05-30 | Outpatient (CLI) | payer OTHER ==
[~2021-05-30] MED LIST changes: +LOSA100T45 PO; -LOSA100T50 PO; +QUET1TAB17 PO; -QUET25TA3 PO
== END ==
LOC: M RAD 13:53
PROVIDERS: ATTEND Student in an Organized Health Care Education/Training Program
DX: Z87.891 Personal history of nicotine dependence (principal)